=== PATIENT | female | born 1940 ===

== ENCOUNTER 2017-05-30 15:07 | Emergency (ER) | payer OTHER ==
[2017-05-30 15:17] VITALS: BP 151/84; PULSE 104; RESP 16; TEMP 97.5; O2SAT 97
--- NOTE | 2017-05-30 17:11 | RAD ---
PROCEDURE: Left Wrist Radiographs. HISTORY: pain s/p fall COMPARISON: None. FINDINGS: BONES: Impacted, comminuted fracture distal radius including an intra-articular component. JOINTS: Normal. No dislocation. SOFT TISSUES: Soft tissue swelling attests to the acuity of the fracture. OTHER FINDINGS: None. IMPRESSION: Acute, impacted comminuted fracture distal left radius.
[2017-05-30] MEDS ORDERED: Lidocaine 1% (10 ml) Inj INFIL STA (17:22)
[2017-05-30] MEDS ORDERED: Lidocaine 1% Inj (20ml) ONE (17:29)
--- NOTE | 2017-05-30 19:18 | CON ---
DATE: 05/30/17 REASON FOR CONSULTATION: Left wrist fracture. HISTORY OF PRESENT ILLNESS: A 76-year-old female who presents to [facility] with complaint of left wrist trauma. The patient sustained a slip and fall while trying to opening gate this morning, landed on her left wrist, and presents to [facility] with deformity of the wrist. I was consulted for evaluation and treatment of this patient. PHYSICAL EXAMINATION: EXTREMITIES: Left wrist, skin is intact. There is gross deformity of the wrist with swelling. Neurovascularly intact. The patient's pain over the distal radius. She has active flexion and extension of all her digits. LABORATORY DATA: X-rays of the left wrist was seen and reviewed shows a Jayy displaced distal radius fracture with dorsal angulation. ASSESSMENT: Left distal radius fracture and dislocation. PLAN: I discussed the above findings with the patient and her son. I recommended close reduction and casting, verbal consent was obtained. A 10 mL of lidocaine was injected for hematoma block of the wrist. The arm was then hung on V pole with countertraction. Closed reduction was performed with traction and hyperflexion of the wrist. Fluoroscopic images confirmed well-reduced fracture and atomic reduction with mosque of volar tilt and radial height. A long arm cast was then placed. The patient tolerated the procedure well. Traction was removed. She was instructed to follow up in my office. Cast precautions were explained. Fady Henry MD MTDOlga
--- NOTE | 2017-05-30 19:19 | ED PDOC ---
Upper Extremity Pain/Injury Time Seen by Provider: 05/30/17 15:36 Chief Complaint (Nursing): Upper Extremity Problem/Injury Chief Complaint (Provider): Left wrist pain, after fall History Per: Patient History/Exam Limitations: no limitations Onset/Duration Of Symptoms: Mins Current Symptoms Are (Timing): Still Present Quality: Sharp Severity: Severe Pain Scale Rating Of: 10 Additional Complaint(s): 76 yo female with no medical problems presents with right wrist pain. PT states she slipped and attempted to grab onto a vertical fence but her hand slipped through it. When she fell wrist was bend in the metal fence. No numbness/ tingling. Pt reports localized right wrist pain. Past Medical History Reviewed: Historical Data, Nursing Documentation, Vital Signs Vital Signs: Last Vital Signs Temp 97.5 F L 05/30/17 15:15 Pulse 104 H 05/30/17 15:15 Resp 16 05/30/17 15:15 BP 151/84 H 05/30/17 15:15 Pulse Ox 97 05/30/17 15:15 - Medical History PMH: No Chronic Diseases - Surgical History Surgical History: No Surg Hx - Family History Family History: States: No Known Family Hx - Home Medications Home Medications: Ambulatory Orders Medication Instructions Recorded traMADol [Ultram] 50 mg PO Q6H PRN #15 tab 05/30/17 - Allergies Allergies/Adverse Reactions: Allergies Allergy/AdvReac Type Severity Reaction Status Date / Time No Known Allergies Allergy Verified 05/30/17 15:14 Review of Systems ROS Statement: Except As Marked, All Systems Reviewed And Found Negative Constitutional: Negative for: Fever, Chills Respiratory: Negative for: Cough Gastrointestinal: Negative for: Nausea, Vomiting, Abdominal Pain Musculoskeletal: Positive for: Other (LEft wrsit pain ) Physical Exam - Reviewed Nursing Documentation Reviewed: Yes Vital Signs Reviewed: Yes - Physical Exam Appears: Positive for: Well, Non-toxic, No Acute Distress Head Exam: Positive for: ATRAUMATIC, NORMAL INSPECTION, NORMOCEPHALIC Skin: Positive for: Normal Color, Warm, DRY Eye Exam: Positive for: Normal appearance ENT: Positive for: Normal ENT Inspection Neck: Positive for: Normal, Painless ROM Cardiovascular/Chest: Positive for: Regular Rate, Rhythm Respiratory: Positive for: Normal Breath Sounds. Negative for: Accessory Muscle Use, Respiratory Distress Pulses-Radial (L): 2+ Pulses-Radial (R): 2+ Back: Positive for: Normal Inspection Extremity: Positive for: Tenderness, Deformity, Swelling. Negative for: Normal ROM (Decreased in the left wrist due to pain ) Neurologic/Psych: Positive for: Alert, Oriented - ECG O2 Sat by Pulse Oximetry: 97 Medical Decision Making Medical Decision Making: Distal radius fracture. Pt reports feeling better after tramadol. Discussed with Dr. Henry who is at bedside for reduction. Pt sent home in cast (placed by Dr. Henry) and sling. Disposition - Clinical Impression Clinical Impression: Fracture of wrist - Patient ED Disposition Is Patient to be Admitted: No Counseled Patient/Family Regarding: Diagnosis, Need For Followup, Rx Given - Disposition Referrals: Fady Henry MD [Medical Doctor] - Disposition: Routine/Home Disposition Time: 19:18 Condition: GOOD Prescriptions: traMADol [Ultram] 50 mg PO Q6H PRN #15 tab PRN Reason: Pain Instructions: Wrist Fracture (DC) Forms: [employer] ([place]) Print Language: ALBANIAN
--- NOTE | 2017-05-31 08:56 | RAD ---
PROCEDURE: Left Wrist Radiographs. HISTORY: Status post close reduction COMPARISON: 05/30/2017 at 3:58 p.m. FINDINGS: BONES: Status post close reduction displaced distal radial fracture. There is persistent slight posterior displacement of the distal radial fragment without significant angulation. The distal radial fracture is comminuted and likely intra-articular. The radiocarpal articulation appears intact. Normal carpal alignment is maintained. There is no ulnar styloid process fracture appreciated. JOINTS: Normal. No dislocation. SOFT TISSUES: Unremarkable OTHER FINDINGS: None. IMPRESSION: Close reduction displaced/ angulated comminuted distal radial fracture.
--- NOTE | 2017-05-31 08:57 | RAD ---
PROCEDURE: Left Wrist Radiographs. HISTORY: post-reduction, in cast COMPARISON: 05/30/2017 at 5:53 p.m. FINDINGS: BONES: Bony detail obscured by overlying fiberglass cast. Status post close reduction distal radial fracture. No change in alignment. Slight posterior displacement distal radial fragment. No angulation. Radiocarpal articulation appears grossly intact. JOINTS: Normal. No dislocation. SOFT TISSUES: Normal. OTHER FINDINGS: None. IMPRESSION: Close reduction, status post placement of fiberglass cast. No change from previous.
== END 2017-05-30 19:33 | disposition home or self-care (01) ==
LOC: H.ER 15:07
DX: S52.502A Unspecified fracture of the lower end of left radius, initial encounter for closed fracture (principal); W01.0XXA Fall on same level from slipping, tripping and stumbling without subsequent striking against object, initial encounter

== ENCOUNTER 2017-07-01 11:50 | Emergency (ER) | payer OTHER ==
[2017-07-01 12:35] VITALS: BP 160/72; PULSE 63; RESP 16; TEMP 97.9; O2SAT 97
--- NOTE | 2017-07-01 14:11 | RAD ---
PROCEDURE: Left Wrist Radiographs. HISTORY: pain COMPARISON: Left wrist radiographs dated 06/09. FINDINGS: Distal left upper extremity cast again limits evaluation of fine bony detail. There is increased displacement and new angulation of the previously described distal radial fracture. IMPRESSION: Increased displacement and angulation of the previously described distal radial fracture.
--- NOTE | 2017-07-01 14:12 | RAD ---
PROCEDURE: Radiographs of the Left Forearm HISTORY: pain COMPARISON: None. TECHNIQUE: Frontal and lateral views obtained. FINDINGS: Distal left upper extremity cast limits evaluation of fine bony detail. There is increased displacement and new angulation of the previously described distal radial fracture. IMPRESSION: Increased displacement and angulation of the previously described distal radial fracture.
--- NOTE | 2017-07-01 15:47 | RAD ---
PROCEDURE: Left Wrist Radiographs. HISTORY: wrist fx COMPARISON: Left wrist radiographs performed approximately 1.75 hours prior. FINDINGS: Distal left upper extremity cast has been removed. Comminuted, dorsally angulated fracture of the distal radius is redemonstrated without significant change in appearance or alignment. IMPRESSION: Interval removal of cast. No change in appearance of comminuted, dorsally angulated fracture of the distal radius.
--- NOTE | 2017-07-01 15:49 | CP.PCM.CON ---
History of Present Illness - History of Present Illness History of Present Illness: Patient is a 76 y/o female with no PMH who presents to the [facility] ER with c/o pain and stiffness of the left wrist. Patient's history was obtained from her son who acts as her powder mixer. On 05/30/17, the patient suffered and slip and fall on black ice injuring her left wrist. The patient presented to the [facility] ER the same day and it was determined that the patient had sustained a left comminuted, intra-articular distal radius fracture. Dr. Henry was consulted and a closed reduction with placement of long arm cast was performed. She presents 1 month following her injury and Dr. Henry was reconsulted for orthopedic evaluation. She currently reports pain and stiffness of the hand and wrist. The pain is dull and aching and intermittent. The pain is worsened with movement and alleviated with rest. She denies numbness and tingling of the LUE or radiation of pain. She denies CP/SOB/N/V/D/FAULKNER/dysuria/melena. Review of Systems - Review of Systems All systems: reviewed and no additional remarkable complaints except Review of Systems: as per HPI Past Patient History - Past Medical History & Family History Past Medical History?: No Past Family History: Reviewed and not pertinent - Past Social History Smoking Status: Never Smoked Alcohol: None Drugs: Denies - PSYCHIATRIC Hx Substance Use: No - SURGICAL HISTORY Hx Surgeries: No - ANESTHESIA Hx Anesthesia: No Meds Allergies/Adverse Reactions: Allergies Allergy/AdvReac Type Severity Reaction Status Date / Time No Known Allergies Allergy Verified 07/01/17 12:29 - Medications Medications: none Physical Exam - Constitutional Appears: No Acute Distress - Head Exam Head Exam: ATRAUMATIC - Eye Exam Eye Exam: EOMI, Normal appearance, PERRL - ENT Exam ENT Exam: Mucous Membranes Moist - Neck Exam Neck exam: Positive for: Normal Inspection - Respiratory Exam Respiratory Exam: NORMAL BREATHING PATTERN - Extremities Exam Additional comments: L wrist: long arm cast c/d/i cast removed revealing mild swelling at the wrist and fingers, minimal tenderness ROM restricted 2nd to fracture sensation and motor intact MN/UN/RN radial pulses intact compartments soft/NT - Neurological Exam Neurological exam: Alert, Oriented x3 - Psychiatric Exam Psychiatric exam: Normal Affect, Normal Mood Results - Vital Signs Recent Vital Signs: Last Vital Signs Temp 97.9 F 07/01/17 12:31 Pulse 63 07/01/17 12:31 Resp 16 07/01/17 12:31 BP 160/72 H 07/01/17 12:31 Pulse Ox 97 07/01/17 12:31 - Impressions Impression: PROCEDURE: Left Wrist Radiographs. HISTORY: pain COMPARISON: Left wrist radiographs dated 06/09. FINDINGS: Distal left upper extremity cast again limits evaluation of fine bony detail. There is increased displacement and new angulation of the previously described distal radial fracture. IMPRESSION: Increased displacement and angulation of the previously described distal radial fracture. Assessment & Plan (1) Fracture of wrist Assessment and Plan: Patient is a 76 y/o female who is 4 weeks s/p closed reduction of left distal radius fx with long arm cast -long arm cast was removed, patient tolerated procedure well -cock up wrist splint was applied -post cast removal films were reviewed showing no interval changes from pre- removal -recommend outpatient PT/OT -f/u in Dr. Henry's office in 4 weeks -case and plan was d/w Dr. Henry in agreement Status: Acute - Date & Time Date: 07/01/17 Time: 16:16
== END 2017-07-01 15:59 | disposition home or self-care (01) ==
LOC: H.ER 11:50
DX: Z47.89 Encounter for other orthopedic aftercare (principal)